=== PATIENT | male | born 1940 | race Caucasian/White ===

== ENCOUNTER → 2016-12-10 | Outpatient (CLI) | payer OTHER ==
[~2016-12-10] MED LIST: ADVAIR 250-501 EACH IH; ALBUTEROL INH IH; ASPIRIN325 PO; BENICAR20 MG PO; BUFFERIN EX ST500 MG PO; BYSTOLIC 5 MG5 M1 PO; BYSTOLIC10 MG PO; CENTRUM SILVER1 EAC5 PO; FISH OIL 1,2001 EAC2 PO; FISH OIL SOFTG1 EACH PO; FLOMAX0.4 MG PO; GLUCOPHAGE500 MG PO; HYDROCHLOROTHIA25 M1 PO; KEPPRA 500 MG500 M1 PO; KEPPRA750 MG PO; LANOXIN 0.120.125 M2 PO; LANOXIN 0.250.25 MG PO; LISINOPRIL10 MG PO; LORTAB 5 MG/5001 TA1 PO; LOVASTAT20 PO; METFORMIN HCL500 MG PO; MULTIVITAMINS PO; NITROSTAT0.4 M1 SUBLING; NITROSTAT0.4 MG; OXYCODONE HCL 55 MG PO; PERCOCET 7.5-31 EACH; PRADAXA150 MG PO; PREDNISONE 5 MG5 M1 PO; PROVENTIL HFA6.7 G1 INH; SPIRIVA; SPIRIVA IH; SPIRIVA INH; SYMBICORT160 MCG/4. INH; TOPROL XL50 MG PO
[2016-12-10 08:41] LABS: CREATININE 1.2 mg/dL (0.6-1.3)
== END ==
LOC: CAT 08:03 → LAB 13:33
PROVIDERS: Internal Medicine Cardiovascular Disease
DX: I71.4 Abdominal aortic aneurysm, without rupture (principal)

== ENCOUNTER → 2017-03-27 | Outpatient (CLI) | payer OTHER ==
[2017-03-27] VITALS (9 sets, daily range): BP systolic 126–165; BP diastolic 57–96
[~2017-03-27] VITALS: Ht 180.3 cm; Wt 120.2 kg
[~2017-03-27] MED LIST changes: +COUMADIN 1MG TAB1 M1 PO; +DYMISTA NASAL S23 GM NS; +ELIPTA INH; +FISH OIL 1,001000 M2 PO; +PRAVACHOL20 MG PO; +PROTONIX40 M1 PO; +SERTRALINE HCL50 MG PO; +UREA CREAM 40%1 TUBE TP
--- NOTE | ~2017-03-27 | S ---
[facility] [place] [address] SURGICAL PATH RPT PROCEDURE Name: FLORECITA CASSIDY Room #: REG [facility].#: [id number] Admission: 03/27/17 Date of : 44 Discharge: Report #: [id number] Path Case #: [id number] PATHOLOGY REPORT COLLECTION DATE: 03/27/2017 RECEIVED DATE: 03/27/2017 SUBMITTING PHYS: Dr. Smith Acevedo OTHER PHYS: Dr. Germán Hardin SPECIMEN(S) RECEIVED: A.Abdominal mass biopsy * * * * * * * * * * * * FINAL DIAGNOSIS: Soft tissue, abdominal mass, needle core biopsy: - Degenerated mature adipose tissue, clinically retroperitoneal mass. - Negative for nuclear atypia or pleomorphism. COMMENT: Examination shows mature adipose tissue without intact nuclei consistent with degenerative changes. Definite areas of necrosis are not identified. Inflammatory changes are not seen. Lipoblasts or nuclear atypia or pleomorphism in the few intact nuclei identified is not seen. There is no mitotic activity identified in any of the needle cores sampled. Please note sample represents a minute portion of a larger lesion and may not be entirely training representative. Correlate clinically and re-sample (excisional biopsy), if clinically indicated. (IUV:mml; 03/28/2017) PATHOLOGIST: Dorene Marroquin M.D. REPORT ELECTRONICALLY SIGNED BY: Dorene Marroquin M.D. DATE/TIME: 03/28/2017 16:41 * * * * * * * * * * * * GROSS PATHOLOGY: Received in formalin labeled "Florecita Cassidy, abdominal mass biopsy," are multiple (more than 10) distinct needle cores of red-mcnair, friable soft tissue ranging from 0.3 to 0.8 cm in length, which are submitted entirely in cassette A1. (KAH; 03/27/2017) CLINICAL HISTORY: [facility] [place] [address] SURGICAL PATH RPT PROCEDURE Name: FLORECITA CASSIDY Room #: REG [facility].#: [id number] Admission: 03/27/17 Date of : 44 Discharge: Report #: [id number] Path Case #: [id number] INITIAL CPT CODE(S): 42314 Professional services performed by [facility] at [address] , [place] [address] Technical services performed by [facility] at [address] [place] [address], [place] [address]. [facility] [address] [place] [address] PHONE: [phone] DIRECTOR: Sonny Mercado M.D. * * * END OF REPORT * * *
--- NOTE | ~2017-03-27 | CNG ---
[facility] [place] [address] CYTO-NONGYN REPORT PROCEDURE Name: FLORECITA CASSIDY Room #: REG [facility].#: [id number] Admission: 03/27/17 Date of : 44 Discharge: Report #: [id number] Path Case #: [id number] CYTOPATHOLOGY REPORT COLLECTION DATE: 03/27/2017 RECEIVED DATE: 03/27/2017 SUBMITTING PHYS: Dr. Smith Acevedo OTHER PHYS: Dr. Germán Hardin CLINICAL HISTORY: Abd mass. See also [id number]. SPECIMEN(S) RECEIVED: A.Abdominal fluid * * * * * * * * * * * * FINAL DIAGNOSIS: A. Abdominal fluid: - No malignant cells identified. - Few inflammatory cells present along with degenerated fat cells and debris. PATHOLOGIST: Dorene Marroquin M.D. REPORT ELECTRONICALLY SIGNED BY: Dorene Marroquin M.D. DATE/TIME: 03/28/2017 16:26 * * * * * * * * * * * * GROSS PATHOLOGY: A. Abdominal fluid: The specimen is submitted unfixed, labeled "Florecita Cassidy". Received by the Cytology Department is less than one mL of red fluid. One ThinPrep slide and a cell block were prepared. (clt 03.27.2017) PALLIATIVE NURSE(S): TIM East([facility] INITIAL CPT CODE(S): A; [id number] [place] [address] Professional services performed by [facility] at [facility] [address] [facility] [address] , [place] [address] [facility] at [address] [place] [address]., [address], [place] [address]. [facility] [address] [place] [address], [facility] [address] [place] [address] PHONE: [phone] [facility] [address] [place] [address] CYTO-NONGYN REPORT PROCEDURE Name: FLORECITA CASSIDY Room #: REG [facility] Cristian.#: [id number] Admission: 03/27/17 Date of : 44 Discharge: Report #: [id number] Path Case #: [id number] DIRECTOR: Sonny Mercado M.D. * * * END OF REPORT * * *
[2017-03-27 08:49] LABS: HEMATOCRIT 40.3 % (42.0-52.0); HEMOGLOBIN 13.8 gm/dL (14.0-18.0); MCH 29.6 pg (26.0-34.0); MCHC 34.3 g/dL (28.0-37.0); MCV 86.4 fL (80.0-100.0); RBC 4.67 mil/uL (4.50-6.00); RDW 15.9 % (10.5-14.5); WBC 9.4 thou/uL (4.0-11.0)
== END | disposition home or self-care (01) ==
LOC: CAT 07:41
PROVIDERS: Radiology Vascular & Interventional Radiology
DX: K66.8 Other specified disorders of peritoneum (principal); I48.91 Unspecified atrial fibrillation; J43.9 Emphysema, unspecified; I25.10 Atherosclerotic heart disease of native coronary artery without angina pectoris; E11.22 Type 2 diabetes mellitus with diabetic chronic kidney disease; N18.2 Chronic kidney disease, stage 2 (mild); I12.9 Hypertensive chronic kidney disease with stage 1 through stage 4 chronic kidney disease, or unspecified chronic kidney disease; I25.2 Old myocardial infarction; I73.89 Other specified peripheral vascular diseases; E78.00 Pure hypercholesterolemia, unspecified; Z79.4 Long term (current) use of insulin; Z87.891 Personal history of nicotine dependence; Z95.1 Presence of aortocoronary bypass graft; Z98.890 Other specified postprocedural states; Z95.5 Presence of coronary angioplasty implant and graft; Z88.8 Allergy status to other drugs, medicaments and biological substances; Z79.82 Long term (current) use of aspirin; Z79.899 Other long term (current) drug therapy

== ENCOUNTER → 2017-05-17 | Outpatient (CLI) | payer OTHER ==
[~2017-05-17] VITALS: Ht 180.3 cm; Wt 92.5 kg
[~2017-05-17] MED LIST changes: +INCRUSE ELLI62.5 MCG INH; +VENTOLIN HFA INH8 GM INH
--- NOTE | ~2017-05-17 | P ---
[facility] [place] [address] PROCEDURE REPORT Name: FLORECITA MAGDALENO Room #: REG [facility]#: [id number] Admission: 05/17/17 Attend Phys: Sj Badillo MD Discharge: Date of : 44 Report #: [id number] THIS REPORT FOR: //name// CC: Germán Rasmussen MD [facility] Sj Badillo BRIEF HISTORY: The patient is a 76-year-old male, known to me with a history of bleeding ulcer in the past. He does take an aspirin daily and he is anticoagulated with Coumadin. He also reports bouts of diarrhea. He does have diabetes. In addition, he has dysphagia for pills. PREOPERATIVE DIAGNOSES: Diarrhea, history of ulcers, and dysphagia. POSTOPERATIVE DIAGNOSES: 1. Moderate erosive gastritis with a few streaks of blood within the stomach lumen. 2. Mild grade A erosive esophagitis. 3. Dysphagia without obvious stricture ring. MEDICATIONS: Deep sedation with propofol per anesthesia. SPECIMENS: 1. Small-bowel biopsies. 2. Biopsy of gastritis. ESTIMATED BLOOD LOSS: 3 mL. PROCEDURE: EGD with biopsy and Duke dilation. FINDINGS: Prior to propofol sedation, procedure of upper endoscopy discussed with the patient as well potential risks, benefits, and complications. He indicates he understands and desires to proceed. With the patient in left lateral decubitus position, the Teach[employer] video endoscope was inserted in the cervical esophagus under direct vision without difficulty. Examination of this organ through its entire length revealed normal esophageal mucosa down the squamocolumnar junction. At the squamocolumnar junction, there were some very small erosions just limited to the squamocolumnar junction. There was no evidence of Meléndez's esophagus. A significant hiatus hernia was not seen. He has had dysphagia for pills, I did not see any strictures, rings, or masses within the esophagus. The GE junction other than the mild esophagitis was unremarkable. Scope was advanced into the stomach, was examined on end view as well as retroflexed views. He had a moderate gastritis and there were streaks of old blood scattered in the body and antrum of the stomach. No ulcers were seen. Significant bleeding was not seen. Upon retroflexion, no mass [address] [address] PROCEDURE REPORT Name: ELSYSCOTTRoxannFLORECITA Juliana Room #: REG [facility] Eliud#: [id number] Admission: 05/17/17 Attend Phys: Sj Badillo MD Discharge: Date of : 44 Report #: [id number] lesions were seen. In view of his history of ulcer disease and erosive changes, biopsies were obtained to evaluate for H. pylori. The pylorus, duodenal bulb and postbulbar sweep were inspected and noted to be within normal limits. He has had bouts of diarrhea, he does have diabetes and biopsies were obtained to evaluate for celiac disease. At that point, the scope was slowly withdrawn and careful circumferential views confirmed the above findings. The patient tolerated the procedure well. Following the procedure, he was dilated with passage of a 50-Romanian Duke dilator. There was no resistance. CONDITION OF THE PATIENT UPON DISCHARGE: Following procedure, the patient drowsy, aroused, conversant and will be discharged home when fully ambulatory. INSTRUCTIONS TO THE PATIENT AND FAMILY AT THE TIME OF DISCHARGE: The patient prepared for colonoscopy at this time. We will have him increase his pantoprazole to 40 mg twice daily for 12 weeks, then back to 1 daily. We will also obtain a CBC for followup and follow up on above mentioned biopsies. He should return for dysphagia on an as needed basis. He should use , although he does take an aspirin for his heart disease. <ELECTRONICALLY SIGNED> By: Sj Badillo MD 05/17/17 1715 0924 1008 Sj Badillo MD /nt
--- NOTE | ~2017-05-17 | S ---
[facility] [place] [address] SURGICAL PATH RPT PROCEDURE Name: FLORECITA CASSIDY Room #: REG [facility].#: [id number] Admission: 05/17/17 Date of : 44 Discharge: Report #: [id number] Path Case #: [id number] PATHOLOGY REPORT COLLECTION DATE: 05/17/2017 RECEIVED DATE: 05/17/2017 SUBMITTING PHYS: Dr. Sj Badillo OTHER PHYS: Dr. Germán Hardin SPECIMEN(S) RECEIVED: A.Bx of small bowel B.Bx of gastric C.Polyp at cecum D.Polyp at ascending colon E.Random colon bx * * * * * * * * * * * * FINAL DIAGNOSIS: A. Small bowel, rule out celiac, endoscopic biopsy: - Negative for villous blunting or increase in intraepithelial lymphocytosis. - No significant diagnostic abnormalities identified. B. Gastric mucosa, gastritis history of ulcer, endoscopic biopsy: - Mild reactive gastropathy with focal ulcer bed and active inflammation, consistent with history of ulcer. - Negative for intestinal metaplasia or atrophy. - Negative for Helicobacter pylori. C. Polyp, at cecum, endoscopic biopsy: - Tubular adenoma. - Negative for high grade dysplasia. D. Polyp, at ascending colon, endoscopic biopsy: - Tubular adenoma. - Negative for high grade dysplasia. E. Large intestine, random colon, rule out colitis, endoscopic biopsy: - Minimal histologic alterations, see comment. - Negative for dysplasia or malignancy. COMMENT: Helicobacter pylori immunohistochemical stain performed on block B1 - negative. E: Examination shows an increased cellularity within the lamina propria along with rare apoptotic bodies within the surface epithelium. There is no evidence of active colitis, crypt architectural abnormalities, lamina propria fibrosis, viral inclusions, parasitic organisms or granulomata present. Findings to suggest microscopic colitis are not identified as well. The changes may represent bowel preparation. Clinical correlation is suggested. [address] [address] SURGICAL PATH RPT PROCEDURE Name: FLORECITA CASSIDY Room #: REG [facility] Kline#: [id number] Admission: 05/17/17 Date of : 44 Discharge: Report #: [id number] Path Case #: [id number] (IUV:db; 05/20/2017) PATHOLOGIST: Dorene Marroquin M.D. REPORT ELECTRONICALLY SIGNED BY: Dorene Marroquin M.D. DATE/TIME: 05/20/2017 17:16 * * * * * * * * * * * * GROSS PATHOLOGY: A. Received in formalin labeled "Florecita Cassidy small bowel BX r/o celiac," and additionally labeled on the requisition as "Hx of diarrhea Dm," are 5 segments of mcnair soft tissue measuring 0.9 x 0.5 x 0.3 cm in aggregate dimensions and ranging from 0.3 to 0.4 cm in maximum dimension. The specimen is submitted entirely in cassette A1. B. Received in formalin labeled "Florecita Cassidy BX of gastritis Hx of ulcer," are 3 segments of mcnair soft tissue measuring 0.8 x 0.2 x 0.2 cm in aggregate dimensions and ranging from 0.2 to 0.4 cm in maximum dimension. The specimen is submitted entirely in cassette B1. C. Received in formalin labeled "Florecita Cassidy, polyp at cecum," is a segment of mcnair soft tissue measuring 0.5 cm in maximum dimension. The specimen is submitted entirely in cassette C1. D. Received in formalin labeled "Florecita Cassidy, polyp at ascending colon," is a segment of mcnair soft tissue measuring 0.6 cm in maximum dimension. The specimen is submitted entirely in cassette D1. E. Received in formalin labeled "Florecita Cassidy, random colon BX r/o colitis," are 8 segments of mcnair soft tissue measuring 1.7 x 0.9 x 0.3 cm in aggregate dimensions and ranging from 0.3 to 0.8 cm in maximum dimension. The specimen is submitted entirely in cassette E1. (TSD; 05/17/2017) CLINICAL HISTORY: Pre-OP DX: Hx diarrhea, constipation, dysphagia Post-OP DX: Gastritis, esophagitis INITIAL CPT CODE(S): A; 78904 B; 51883, 14218 C; 12419 D; 01060 E; 44125 Professional services performed by [facility] at [address], [place] [address] Technical services performed by [facility] at [address] [place] [address], [address], [place] [address]. [facility] [address] [place] [address] SURGICAL PATH RPT PROCEDURE Name: FLORECITA CASSIDY Room #: REG [facility] Kline#: [id number] Admission: 05/17/17 Date of : 44 Discharge: Report #: [id number] Path Case #: [id number] [facility] [address] [address] PHONE: [phone] DIRECTOR: Sonny Mercado M.D. * * * END OF REPORT * * *
--- NOTE | ~2017-05-17 | P ---
[facility] [place] [address] PROCEDURE REPORT Name: FLORECITA MAGDALENO Room #: REG [facility]#: [id number] Admission: 05/17/17 Attend Phys: Sj Badillo MD Discharge: Date of : 44 Report #: [id number] THIS REPORT FOR: //name// CC: Germán Rasmussen MD [facility] Sj Badillo BRIEF HISTORY: The patient is a 76-year-old male with a history of colon adenoma. He also has had a history of major GI bleeding related to rectal ulcer several years ago, which were likely ischemic. He does have diabetes and is now reporting intermittent episode of diarrhea. PREOPERATIVE DIAGNOSES: History of colon polyps and diarrhea. POSTOPERATIVE DIAGNOSES: 1. Cecal polyp. 2. Proximal ascending colon polyp. 3. Random biopsies of the colon, rule out colitis. ESTIMATED BLOOD LOSS: 3 mL. PROCEDURE: Colonoscopy to cecum and terminal ileum with snare polypectomy and biopsy. FINDINGS: Prior to propofol sedation, procedure of colonoscopy discussed with the patient as well as potential risks, benefits, and complications. He indicates he understands and desires to proceed. With the patient in left lateral decubitus position, digital examination was completed, which revealed no abnormalities. Subsequently, the qianchengwuyou video colonoscope was introduced into the rectum, advanced under direct vision to the cecum. Done with minimal difficulty. The cecum was identified by the ileocecal valve and the appendiceal orifice. I was able to visualize the distal segment of the terminal ileum, which was inspected and noted to be unremarkable. At that point, the scope was slowly withdrawn and careful circumferential views were obtained. Upon slow withdrawal of the scope, including retroflexing, the prep was good. The mucosa was within normal limits, normal vascular pattern, and normal light reflex. As the scope was withdrawn, a 4 x 6 sessile polyp was seen in the cecum. It was removed by cold snare polypectomy and recovered. Scope was further withdrawn and a 4 x 5 sessile polyp was seen in the proximal ascending colon and also removed by cold snare polypectomy. The patient has had bouts of diarrhea. Multiple biopsies were obtained to evaluate for microscopic colitis. In addition, as we withdrew the scope, a few scattered diverticula were seen in the proximal colon and moderate diverticular disease was seen in the sigmoid colon as well. In addition, as we withdrew the scope through the sigmoid and rectum, a few scattered venous lakes were seen as well. In [address] [address] PROCEDURE REPORT Name: FLORECITA MAGDALENO Room #: REG [facility] Kline#: [id number] Admission: 05/17/17 Attend Phys: Sj Badillo MD Discharge: Date of : 44 Report #: [id number] addition, in the rectum, there were scattered scars likely related to his previous ulcer disease involving the rectum. Upon retroflexion, no additional abnormalities were seen. Scope was withdrawn. The patient tolerated the procedure well. CONDITION OF THE PATIENT UPON DISCHARGE: Following the procedure, the patient drowsy and arousable and we discharged home when fully ambulatory. INSTRUCTIONS TO THE PATIENT AND FAMILY AT THE TIME OF DISCHARGE: He has had polyps in the past. Two polyps were identified and removed today. We will follow up on the path report. If these polyps are adenomatous, he should return in 5 years. If not, consider 10 years, although I would base that recommendations on the patient's overall health status in 10 years and at age 86. We will follow up on biopsies with regards to his bouts of diarrhea and the possibly of microscopic colitis. It is also noted that he has had a previous cholecystectomy and bile binding agent may be a consideration. In view of his diabetes, consider the possibility of small intestinal bacterial overgrowth. In addition, taking a probiotic at this time would be reasonable. He may resume his Coumadin today. He will follow up with Dr. Germán Hardin and Dr. Rasmussen. He should return to see me as needed with regards to GI symptoms. Last colonoscopy was more than 3 years ago. Withdrawal time from the cecum was 14 minutes. <ELECTRONICALLY SIGNED> By: Sj Badillo MD 05/17/17 1715 0952 1157 Sj Badillo MD /mónica
[2017-05-17 08:42] LABS: INR 1.2; PROTIME 12.7 Seconds (9.3-11.4)
== END | disposition home or self-care (01) ==
LOC: LABMALL 05-14 13:13 → GI 05-14 13:23
PROVIDERS: Ophthalmology
DX: D12.0 Benign neoplasm of cecum (principal); R19.7 Diarrhea, unspecified; Z87.19 Personal history of other diseases of the digestive system; E11.9 Type 2 diabetes mellitus without complications; D12.2 Benign neoplasm of ascending colon; K57.30 Diverticulosis of large intestine without perforation or abscess without bleeding; K22.10 Ulcer of esophagus without bleeding; F41.9 Anxiety disorder, unspecified; J44.9 Chronic obstructive pulmonary disease, unspecified; J43.9 Emphysema, unspecified; Z87.891 Personal history of nicotine dependence; I21.3 ST elevation (STEMI) myocardial infarction of unspecified site; I10 Essential (primary) hypertension; Z95.1 Presence of aortocoronary bypass graft; I48.91 Unspecified atrial fibrillation; I25.10 Atherosclerotic heart disease of native coronary artery without angina pectoris
CPT/HCPCS: 62110; 62900

== ENCOUNTER → 2017-06-06 | Outpatient (CLI) | payer OTHER ==
[2017-06-06 10:34] LABS: CREATININE 1.3 mg/dL (0.7-1.3)
== END ==
LOC: CAT 05-30 08:50
PROVIDERS: Internal Medicine
DX: I12.9 Hypertensive chronic kidney disease with stage 1 through stage 4 chronic kidney disease, or unspecified chronic kidney disease (principal); E11.22 Type 2 diabetes mellitus with diabetic chronic kidney disease; N18.3 Chronic kidney disease, stage 3 (moderate); R19.00 Intra-abdominal and pelvic swelling, mass and lump, unspecified site

== ENCOUNTER → 2017-12-23 | Outpatient (CLI) | payer OTHER | LOC: CAT 06:06 | DX: I72.3 Aneurysm of iliac artery (principal); I10 Essential (primary) hypertension; K76.0 Fatty (change of) liver, not elsewhere classified; K57.30 Diverticulosis of large intestine without perforation or abscess without bleeding ==

== ENCOUNTER 2019-04-20 08:50 | Inpatient (IN) | payer OTHER ==
[~2019-04-20] VITALS: Ht 180.3 cm; Wt 97.5 kg
[2019-04-20 08:52] VITALS: BP 127/72
[2019-04-20] MEDS ORDERED: DYMISTA NASAL S23 GM NASAL (09:13)
[2019-04-20] MEDS ORDERED: LANTUS100 UNIT/M SUBQ (09:14)
[2019-04-20] MEDS ORDERED: ELIQUIS5 MG PO (09:14)
[2019-04-20] MEDS ORDERED: LISINOPRIL10 MG PO (09:16)
[2019-04-20 09:17] LABS: ABSOLUTE NEUTROPHILS 6.1 thou/uL (1.4-8.2); BASOPHILS 0.5 % (0.0-2.0); EOSINOPHILS 3.7 % (0.0-3.0); HEMATOCRIT 34.1 % (42.0-52.0); HEMOGLOBIN 11.2 gm/dL (14.0-18.0); LYMPHOCYTES 8.6 % (24.0-44.0); MCH 29.4 pg (26.0-34.0); MCV 89.2 fL (80.0-100.0); MONOCYTES 7.4 % (1.0-8.0); PLATELET COUNT 194 thou/uL (150-400); POLYS 79.8 % (36.0-66.0); RBC 3.82 mil/uL (4.50-6.00); RDW 17.2 % (10.5-14.5); WBC 7.7 thou/uL (4.0-11.0)
[2019-04-20] MEDS ORDERED: PAXIL10 MG PO (09:18)
[2019-04-20] MEDS ORDERED: NOVOLOG100 UNIT/1 SUBQ (09:18)
[2019-04-20] MEDS ORDERED: SPIRIVA INH ×2 (09:19→09:20)
[2019-04-20 09:26] LABS: ANION GAP 8 mmol/L (7-16); BUN 43 mg/dL (7-18); CALCIUM 9.5 mg/dL (8.5-10.1); CHLORIDE 101 mmol/L (98-107); CO2 27 mmol/L (21-32); CREATININE 1.6 mg/dL (0.7-1.3); GLUCOSE 217 mg/dL (74-106); POTASSIUM 5.3 mmol/L (3.5-5.1); SODIUM 136 mmol/L (136-145)
[2019-04-20 09:37] LABS: ALBUMIN 3.3 g/dL (3.4-5.0); SGOT 16 U/L (15-37); SGPT 17 U/L (30-65); TOTAL BILIRUBIN 0.5 mg/dL (<0.1-1.0); TOTAL PROTEIN 7.4 g/dL (6.4-8.2); TROPONIN-I <0.06 ng/mL (<0.06)
[2019-04-20 09:40] LABS: URINE BILIRUBIN NEGATIVE (Negative); URINE BLOOD NEGATIVE (Negative); URINE CLARITY CLEAR; URINE COLOR YELLOW; URINE GLUCOSE-RANDOM* NEGATIVE (Negative); URINE KETONES NEGATIVE (Negative); URINE LEUKOCYTES NEGATIVE (Negative); URINE NITRITE NEGATIVE (Negative); URINE PROTEIN (DIPSTICK) NEGATIVE (Negative); URINE UROBILINOGEN 0.2 E.U./dl (0.2-1.0)
[2019-04-20 12:10] VITALS: BP 143/86
[2019-04-21 06:16] LABS: CALCIUM 8.7 mg/dL (8.5-10.1); CREATININE 1.5 mg/dL (0.7-1.3); POTASSIUM 4.7 mmol/L (3.5-5.1)
--- NOTE | 2019-04-21 08:12 | EKG ---
[address] [address] ELECTROCARDIOGRAM REPORT Name: FLORECITA MAGDALENO Room #: 523A-A ADM IN M.R.#: [id number] Admission: 04/20/19 Attend Phys: Mario Alberto Montoya DO Discharge: Date of : 44 Report #: [id number] THIS REPORT FOR: //name// [facility] ED Test Date: 2019-04-20 Test Time: 09:02:03 Pat Name: FLORECITA MAGDALENO Department: Room: 52 Gender: M [employer] Aircraft Technician: roman perez : 1940 Requested By: Priyanka Miner Order Number: [id number] MD: Saad Melendrez Measurements Intervals Morgan Rate: 85 P: MO: QRS: 83 QRSD: 135 T: -69 QT: 380 QTc: 452 Interpretive Statements Atrial fibrillation Right bundle branch block Nonspecific ST and T wave abnormality Compared to ECG 03/12/2014 13:00:47 Right bundle-branch block now present Electronically Signed On 04-21-2019 8:12:43 CDT by Saad Melendrez [email or web address] <ELECTRONICALLY SIGNED> By: Saad Melendrez MD, [facility] 04/21/19811 09 0902 Saad Melendrez MD, [facility] /EPI
--- NOTE | 2019-04-21 10:35 | 2DMMODE ---
[facility] [address] [facility] [place] [address] 2 D/M-MODE ECHOCARDIOGRAM Name: FLORECITA MAGDALENO TOMMY Room #: 523A-A ADM IN M.R.#: [id number] Admission: 04/20/19 Attend Phys: Mario Alberto Montoya Discharge: Date of : 44 Date of Service: 04/21/19 1035 Report #: [id number] THIS REPORT FOR: //name// APPROVED REPORT Study performed: 04/21/2019 09:44:30 EXAM: Comprehensive 2D, Doppler, and color-flow Echocardiogram Patient Location: Echo lab Room #: 523 Status: routine BSA: 2.28 HR: 83 bpm BP: 143/86 mmHg Rhythm: Atrial Fibrillation Other Information Study Quality: Adequate Indications Leg edema, CHF. Hx: Afib, CABG, COPD, HTN, PVD. 2D Dimensions RVDd: 40.90 mm IVSd: 12.00 (7-11mm) LVOT Diam: 23.39 (18-24mm) LVDd: 53.98 mm PWd: 9.00 (7-11mm) LVDs: 39.45 (25-40mm) Aortic Root: 39.03 mm Volumes Left Atrial Volume (Systole) Single Plane 4CH: 93.65 mL Single Plane 2CH: 72.42 mL LA ESV Index: 39.00 mL/m2 Aortic Valve AoV Peak Garland.: 1.32 m/s AO Peak Gr.: 7.18 mmHg LVOT Max P.93 mmHg LVOT Max V: 1.10 m/s ADOLFO Vmax: 3.58 cm2 Mitral Valve MV Decel. Time: 217.71 ms MV E Max Garland.: 1.56 m/s [facility] [place] [place] [address] 2 D/M-MODE ECHOCARDIOGRAM Name: FLORECITA MAGDALENO ST[place]AM Room #: 523A-A ADM IN M.R.#: [id number] Admission: 04/20/19 Attend Phys: Mario Alberto Montoya Discharge: Date of : 44 Date of Service: 04/21/19 1035 Report #: [id number] Pulmonary Valve PV Peak Garland.: 1.13 m/s PV Peak Gr.: 5.09 mmHg Tricuspid Valve TR Peak Garland.: 3.10 m/s RAP Estimate: 10.00 mmHg TR Peak Gr.: 38.65 mmHg PA Pressure: 49.00 mmHg Left Ventricle The left ventricle is normal size. There is normal LV segmental wall motion. There is normal left ventricular wall thickness. The left ventricular systolic function is normal. The left ventricular ejection fraction is within the normal range. LVEF is 50%. This study is not technically sufficient to allow evaluation of the LV diastolic function due to atrial fibrillation. Right Ventricle The right ventricle is normal size. The right ventricular systolic function is normal. Atria Left atrium is moderately dilated. Right atrium is moderately dilated. Aortic Valve Aortic valve is trileaflet, mildly sclerotic. Mild aortic regurgitation. There is no aortic valvular stenosis. Mitral Valve Moderate mitral annular calcification. Moderate mitral regurgitation. Tricuspid Valve The tricuspid valve is normal in structure. Moderate tricuspid regurgitation. Estimated PAP is 50mmHg. Pulmonic Valve The pulmonary valve is normal in structure. Trace pulmonic regurgitation. Great Vessels Aortic root is mildly dilated at 3.9cm. Ascending aorta is not well visualized. IVC is dilated and collapses <50% with inspiration. Pericardium [facility] [address] [place] [address] 2 D/M-MODE ECHOCARDIOGRAM Name: FLORECITA MAGDALENO Room #: 523A-A ADM IN M.R.#: [id number] Admission: 04/20/19 Attend Phys: Mario Alberto Montoya Discharge: Date of : 44 Date of Service: 04/21/19 1035 Report #: [id number] There is no pericardial effusion. <Conclusion> The left ventricular systolic function is normal. LVEF is 50%. Both atria are moderately dilated. Aortic valve is trileaflet, mildly sclerotic. Mild aortic regurgitation, no stenosis. Moderate mitral annular calcification. Moderate mitral regurgitation. Moderate tricuspid regurgitation. Estimated pulmonary artery pressure of 50mmHg. There is no pericardial effusion. <ELECTRONICALLY SIGNED> By: Saad Melendrez MD, FACC 08/13/19 1035 1035 1035 Saad Melendrez MD, [facility] /INF
[2019-04-21 11:00] VITALS: BP 141/70
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
[2019-04-21 17:45] VITALS: BP 104/54
[2019-04-21 18:06] VITALS: BP 133/78
[2019-04-21 19:50] VITALS: BP 107/69
[2019-04-22 06:14] LABS: CREATININE 1.6 mg/dL (0.7-1.3); POTASSIUM 4.2 mmol/L (3.5-5.1)
[2019-04-22 09:16] VITALS: BP 121/88
[2019-04-22 14:08] VITALS: BP 121/88
[2019-04-22 20:54] VITALS: BP 110/65
[2019-04-23 01:53] VITALS: BP 110/65
[2019-04-23 07:09] LABS: ABSOLUTE NEUTROPHILS 4.9 thou/uL (1.4-8.2); BASOPHILS 0.6 % (0.0-2.0); EOSINOPHILS 3.7 % (0.0-3.0); LYMPHOCYTES 12.8 % (24.0-44.0); MONOCYTES 9.7 % (1.0-8.0); POLYS 73.2 % (36.0-66.0); WBC 6.6 thou/uL (4.0-11.0)
[2019-04-23 07:22] LABS: CALCIUM 8.7 mg/dL (8.5-10.1); CREATININE 1.9 mg/dL (0.7-1.3)
[2019-04-23 07:40] VITALS: BP 101/68
[2019-04-23 08:00] VITALS: BP 101/68
[2019-04-23 21:35] VITALS: BP 112/48; BP 139/99
[2019-04-24 06:44] LABS: CREATININE 1.9 mg/dL (0.7-1.3); POTASSIUM 3.9 mmol/L (3.5-5.1)
[2019-04-24 07:30] VITALS: BP 113/70
[2019-04-24] MEDS ORDERED: DEMADEX20 MG PO (09:03)
[2019-04-24 09:06] VITALS: BP 113/70
[2019-04-24] MEDS ORDERED: METOPROLOL SUCC50 MG PO (09:16)
[2019-04-24] MEDS ORDERED: DOXYCYCLINE HYC50 MG PO (09:16)
[2019-04-24 10:15] VITALS: BP 113/70
[2019-04-24 10:57] VITALS: BP 113/70
[2019-04-24] MEDS ORDERED: SEROQUEL 25 MG25 M1 PO (10:57)
[2019-04-24] MEDS ORDERED: SEROQUEL 25 MG25 MG PO (10:58)
[2019-04-24] MEDS ORDERED: LANTUS100 UNIT/M SUBQ (10:58)
[2019-04-24] MEDS ORDERED: NOVOLOG100 UNIT/1 SUBQ (10:59)
--- NOTE | 2019-04-27 08:00 | D ---
[facility] [place] [address] DISCHARGE SUMMARY Name: FLORECITA MAGDALENO Room #: 523A-A DIS IN M.R.#: [id number] Admission: 04/20/19 Attend Phys: Mario Alberto Montoya DO Discharge: 04/24/19 Date of : 44 Report #: [id number] THIS REPORT FOR: //name// CC: Mario Alberto Hardin DATE OF SERVICE: 04/24/2019 PSYCHIATRIC DISCHARGE SUMMARY ATTENDING: Mario Alberto Montoya DO MEDICAL AND [employer]ER [employer]ANE OPERATOR: Stanford Rasmussen MD DISCHARGE DIAGNOSES: Unspecified depression, improved; panic disorder; agoraphobia; tendency towards somatization. DISCHARGE PLAN: Discharged home with his . The patient will be in [facility] at [facility] next Saturday. Also, we will do physical therapy at [facility]. Cardiology f/u with Dr. Rasmussen Primary care follow up with Dr. Germán Hardin Diet for this patient is a diabetic 1800-calorie diet. DISCHARGE MEDICATIONS: Are as follows: Furosemide 20 mg p.o. daily; doxycycline 100 mg p.o. b.i.d.; metoprolol succinate 50 mg daily; Seroquel 37.5 mg 3 times a day at 9 am, 3 pmaand 9 pm and 25 mg q. 6 hours p.r.n.; insulin glargine 25 units subcutaneous at bedtime; insulin aspart 6 units subcutaneous a.c. Continue medications; nitroglycerin p.r.n., tamsulosin 0.4 mg p.o. daily at bedtime, Keppra 500 mg b.i.d. for seizure disorder, digoxin 125 mcg p.o. daily for rate control, albuterol 2 puffs inhaled q. 4 hours p.r.n. shortness of breath, apixaban 5 mg p.o. b.i.d., lisinopril 10 mg p.o. daily for hypertension. Sertraline was discontinued this admission. LABORATORY DATA: There were numbers of laboratories done this admission. Hematology showed H and H 11.2 and 34.1, white count 7.7. ESR was 56. Electrolytes showed sodium 137, potassium 3.9, chloride 102, bicarbonate 26, BUN 61, creatinine 1.9. Dr. Rasmussen was okay with a creatinine. Urinalysis was negative. Also, there was a 2D echocardiogram done, showed left ventricular ejection fraction at 50% which was desirable. The patient did not have any coronary events or concerns other than intermittent shortness of breath that was due to his anxiety disorder. [address] [address] DISCHARGE SUMMARY Name: FLORECITA MAGDALENO Room #: 523A-A [facility] IN M.R.#: [id number] Admission: 04/20/19 Attend Phys: Mario Alberto Montoya, Discharge: 04/24/19 Date of : 44 Report #: [id number] REASON FOR ADMISSION: The patient had become according to day worker "cardiac cripple," living in this house since September, some feelings of depression, but becoming panic stricken when he would contemplate activities outside of the house. HOSPITAL COURSE: The patient was admitted to Geriatric Psychiatry Unit. Alprazolam was discontinued given the patient's age, bears less anxiety, rebound. He was started on Seroquel 25 mg t.i.d., this was titrated to 37.5 mg t.i.d. Several family meetings were held with his and his granddaughter present. His granddaughter is a registered nurse. We discussed that this would be a marathon not a sprint that from a psychotherapeutic standpoint, the patient's attendance in PHP program, which would be groups ____ during the day that would be higher functioning group, is essential. The patient also had not been able to give physical therapy a good effort. So he was seen on the unit and for gait training, endurance, strengthening that was recommended. On the day of discharge, the patient was not suicidal or homicidal, was open to above recommendations. Musculoskeletal exam; assisted gait with a walker. MENTAL STATUS EXAMINATION: This is a well-developed, well-nourished male, appearing stated age. Attention intact. Concentration intact. Speech is normal in rate, volume and tone. Thought process linear and goal oriented. Thought content focused on discharge, improved himself. No psychomotor retardation or psychomotor agitation. Denied SI or HI. Denied hopelessness and helplessness. Denied homicidal intent or plan. Denied suicidal intent or plan. Memory not formally tested. Insight fair. Judgment fair. Fund of knowledge at least average. Prognosis for this patient is fair to guarded depending on the effort and compliance he puts forth. <ELECTRONICALLY SIGNED> By: Mario Alberto Montoya, 04/27/19 0800 1208 1339 Mario Alberto Montoya DO /nt
== END 2019-04-24 11:30 | disposition home or self-care (01) | DRG 882 ==
LOC: ER 08:50 → SBH 10:20 → EROBS 10:20 → SBH 12:13
PROVIDERS: Emergency Medicine; Internal Medicine Cardiovascular Disease; Nurse Practitioner Adult Health; ADMIT Psychiatry & Neurology Psychiatry
DX: F40.01 Agoraphobia with panic disorder (principal); L03.119 Cellulitis of unspecified part of limb; F32.9 Major depressive disorder, single episode, unspecified; F41.8 Other specified anxiety disorders; G89.29 Other chronic pain; M54.9 Dorsalgia, unspecified; I25.10 Atherosclerotic heart disease of native coronary artery without angina pectoris; I73.9 Peripheral vascular disease, unspecified; J43.9 Emphysema, unspecified; I10 Essential (primary) hypertension; F41.9 Anxiety disorder, unspecified; N40.0 Benign prostatic hyperplasia without lower urinary tract symptoms; E11.319 Type 2 diabetes mellitus with unspecified diabetic retinopathy without macular edema; I71.4 Abdominal aortic aneurysm, without rupture; I48.2 Chronic atrial fibrillation; E78.5 Hyperlipidemia, unspecified; F40.00 Agoraphobia, unspecified; I25.2 Old myocardial infarction; Z95.5 Presence of coronary angioplasty implant and graft; Z95.828 Presence of other vascular implants and grafts; Z86.718 Personal history of other venous thrombosis and embolism; Z95.1 Presence of aortocoronary bypass graft; Z98.42 Cataract extraction status, left eye; Z98.41 Cataract extraction status, right eye; Z88.8 Allergy status to other drugs, medicaments and biological substances; Z79.4 Long term (current) use of insulin; Z82.49 Family history of ischemic heart disease and other diseases of the circulatory system
CPT/HCPCS: 10880

== ENCOUNTER → 2019-05-12 | Outpatient (CLI) | payer OTHER ==
[~2019-05-12] MED LIST changes: +DEMADEX20 MG PO; +DOXYCYCLINE HYC50 MG PO; +DYMISTA NASAL S23 GM NASAL; +ELIQUIS5 MG PO; +LANTUS100 UNIT/M SUBQ; +METOPROLOL SUCC50 MG PO; +NOVOLOG100 UNIT/1 SUBQ; +PAXIL10 MG PO; +SEROQUEL 25 MG25 M1 PO; +SEROQUEL 25 MG25 MG PO
== END ==
LOC: HYPER 05-05 14:43
DX: E11.622 Type 2 diabetes mellitus with other skin ulcer (principal); L97.822 Non-pressure chronic ulcer of other part of left lower leg with fat layer exposed; L03.116 Cellulitis of left lower limb; L03.115 Cellulitis of right lower limb; E11.51 Type 2 diabetes mellitus with diabetic peripheral angiopathy without gangrene; I25.10 Atherosclerotic heart disease of native coronary artery without angina pectoris; I48.2 Chronic atrial fibrillation; I10 Essential (primary) hypertension; I71.4 Abdominal aortic aneurysm, without rupture; L30.9 Dermatitis, unspecified; G89.4 Chronic pain syndrome; E78.00 Pure hypercholesterolemia, unspecified; G47.30 Sleep apnea, unspecified; R60.0 Localized edema; J44.9 Chronic obstructive pulmonary disease, unspecified; F41.0 Panic disorder [episodic paroxysmal anxiety]; F33.8 Other recurrent depressive disorders; Z87.891 Personal history of nicotine dependence; Z79.4 Long term (current) use of insulin; Z95.1 Presence of aortocoronary bypass graft; Z95.828 Presence of other vascular implants and grafts; Z79.01 Long term (current) use of anticoagulants

== ENCOUNTER → 2019-05-21 | Outpatient (CLI) | payer OTHER | LOC: HYPER 06:46 | DX: E11.622 Type 2 diabetes mellitus with other skin ulcer (principal); L97.821 Non-pressure chronic ulcer of other part of left lower leg limited to breakdown of skin; L03.116 Cellulitis of left lower limb; L03.115 Cellulitis of right lower limb; E11.51 Type 2 diabetes mellitus with diabetic peripheral angiopathy without gangrene; I25.10 Atherosclerotic heart disease of native coronary artery without angina pectoris; I48.2 Chronic atrial fibrillation; I10 Essential (primary) hypertension; I71.4 Abdominal aortic aneurysm, without rupture; L30.9 Dermatitis, unspecified; G89.4 Chronic pain syndrome; I89.0 Lymphedema, not elsewhere classified; G47.30 Sleep apnea, unspecified; E78.00 Pure hypercholesterolemia, unspecified; G47.50 Parasomnia, unspecified; R60.0 Localized edema; F41.0 Panic disorder [episodic paroxysmal anxiety]; F33.8 Other recurrent depressive disorders; Z95.818 Presence of other cardiac implants and grafts; Z87.891 Personal history of nicotine dependence; Z79.4 Long term (current) use of insulin; Z95.1 Presence of aortocoronary bypass graft; Z95.828 Presence of other vascular implants and grafts; Z79.01 Long term (current) use of anticoagulants ==

== ENCOUNTER → 2019-06-09 | Outpatient (CLI) | payer OTHER | LOC: HYPER 08:06 | DX: E11.622 Type 2 diabetes mellitus with other skin ulcer (principal); L97.821 Non-pressure chronic ulcer of other part of left lower leg limited to breakdown of skin; L97.811 Non-pressure chronic ulcer of other part of right lower leg limited to breakdown of skin; S90.41 Abrasion of toe; I25.10 Atherosclerotic heart disease of native coronary artery without angina pectoris; I71.4 Abdominal aortic aneurysm, without rupture; I10 Essential (primary) hypertension; L30.9 Dermatitis, unspecified; I89.0 Lymphedema, not elsewhere classified; I48.91 Unspecified atrial fibrillation; E11.51 Type 2 diabetes mellitus with diabetic peripheral angiopathy without gangrene; E78.00 Pure hypercholesterolemia, unspecified; R60.0 Localized edema; G89.4 Chronic pain syndrome; G47.30 Sleep apnea, unspecified; G47.50 Parasomnia, unspecified; J44.9 Chronic obstructive pulmonary disease, unspecified; F33.8 Other recurrent depressive disorders; F41.0 Panic disorder [episodic paroxysmal anxiety]; Z95.818 Presence of other cardiac implants and grafts; Z79.4 Long term (current) use of insulin; Z95.1 Presence of aortocoronary bypass graft; Z95.828 Presence of other vascular implants and grafts; Z79.01 Long term (current) use of anticoagulants; Z87.891 Personal history of nicotine dependence; X58.XXXS Exposure to other specified factors, sequela ==

== ENCOUNTER → 2019-07-06 | Outpatient (CLI) | payer OTHER | LOC: HYPER 06-25 17:10 | DX: E11.622 Type 2 diabetes mellitus with other skin ulcer (principal); L97.821 Non-pressure chronic ulcer of other part of left lower leg limited to breakdown of skin; L97.811 Non-pressure chronic ulcer of other part of right lower leg limited to breakdown of skin; E11.51 Type 2 diabetes mellitus with diabetic peripheral angiopathy without gangrene; I25.10 Atherosclerotic heart disease of native coronary artery without angina pectoris; I10 Essential (primary) hypertension; I48.91 Unspecified atrial fibrillation; I71.4 Abdominal aortic aneurysm, without rupture; L30.9 Dermatitis, unspecified; G89.4 Chronic pain syndrome; I89.0 Lymphedema, not elsewhere classified; E78.00 Pure hypercholesterolemia, unspecified; G47.30 Sleep apnea, unspecified; G47.50 Parasomnia, unspecified; R60.0 Localized edema; J44.9 Chronic obstructive pulmonary disease, unspecified; F41.0 Panic disorder [episodic paroxysmal anxiety]; F33.8 Other recurrent depressive disorders; F41.9 Anxiety disorder, unspecified; Z87.891 Personal history of nicotine dependence; Z79.4 Long term (current) use of insulin; Z95.1 Presence of aortocoronary bypass graft; Z95.828 Presence of other vascular implants and grafts; Z79.01 Long term (current) use of anticoagulants ==

== ENCOUNTER → 2019-07-28 | Outpatient (CLI) | payer OTHER | LOC: HYPER 07:31 | DX: E11.622 Type 2 diabetes mellitus with other skin ulcer (principal); L97.811 Non-pressure chronic ulcer of other part of right lower leg limited to breakdown of skin; L97.821 Non-pressure chronic ulcer of other part of left lower leg limited to breakdown of skin; E11.51 Type 2 diabetes mellitus with diabetic peripheral angiopathy without gangrene; I25.10 Atherosclerotic heart disease of native coronary artery without angina pectoris; I48.20 Chronic atrial fibrillation, unspecified; I10 Essential (primary) hypertension; I71.4 Abdominal aortic aneurysm, without rupture; E78.00 Pure hypercholesterolemia, unspecified; L30.9 Dermatitis, unspecified; G89.4 Chronic pain syndrome; G47.50 Parasomnia, unspecified; R60.0 Localized edema; G47.30 Sleep apnea, unspecified; J44.9 Chronic obstructive pulmonary disease, unspecified; F41.0 Panic disorder [episodic paroxysmal anxiety]; F33.8 Other recurrent depressive disorders; Z95.818 Presence of other cardiac implants and grafts; Z79.4 Long term (current) use of insulin; Z95.1 Presence of aortocoronary bypass graft; Z95.828 Presence of other vascular implants and grafts; Z79.01 Long term (current) use of anticoagulants; Z87.891 Personal history of nicotine dependence ==

== ENCOUNTER → 2019-10-14 | Outpatient (CLI) | payer OTHER | LOC: HYPER 12:06 | DX: E11.622 Type 2 diabetes mellitus with other skin ulcer (principal); L97.818 Non-pressure chronic ulcer of other part of right lower leg with other specified severity; L97.821 Non-pressure chronic ulcer of other part of left lower leg limited to breakdown of skin; L03.116 Cellulitis of left lower limb; L03.115 Cellulitis of right lower limb; L30.9 Dermatitis, unspecified; E11.51 Type 2 diabetes mellitus with diabetic peripheral angiopathy without gangrene; E78.00 Pure hypercholesterolemia, unspecified; I25.10 Atherosclerotic heart disease of native coronary artery without angina pectoris; I48.20 Chronic atrial fibrillation, unspecified; I10 Essential (primary) hypertension; I71.4 Abdominal aortic aneurysm, without rupture; G47.30 Sleep apnea, unspecified; G89.4 Chronic pain syndrome; R60.0 Localized edema; J44.9 Chronic obstructive pulmonary disease, unspecified; F41.0 Panic disorder [episodic paroxysmal anxiety]; F41.9 Anxiety disorder, unspecified; F33.8 Other recurrent depressive disorders; Z79.01 Long term (current) use of anticoagulants; Z95.828 Presence of other vascular implants and grafts; Z95.1 Presence of aortocoronary bypass graft; Z87.891 Personal history of nicotine dependence; Z95.820 Peripheral vascular angioplasty status with implants and grafts; Z95.818 Presence of other cardiac implants and grafts; Z79.4 Long term (current) use of insulin ==

== ENCOUNTER → 2019-11-12 | Outpatient (CLI) | payer OTHER | LOC: SJCVC 14:26 | DX: I45.10 Unspecified right bundle-branch block (principal); I48.20 Chronic atrial fibrillation, unspecified; R94.31 Abnormal electrocardiogram [ECG] [EKG]; I25.810 Atherosclerosis of coronary artery bypass graft(s) without angina pectoris; I73.9 Peripheral vascular disease, unspecified; E78.00 Pure hypercholesterolemia, unspecified; E11.9 Type 2 diabetes mellitus without complications; I10 Essential (primary) hypertension; J44.9 Chronic obstructive pulmonary disease, unspecified; Z79.4 Long term (current) use of insulin; Z95.1 Presence of aortocoronary bypass graft; Z79.82 Long term (current) use of aspirin; Z79.899 Other long term (current) drug therapy; Z87.891 Personal history of nicotine dependence ==

== ENCOUNTER → 2020-06-15 | Outpatient (CLI) | payer OTHER | LOC: SJCVCIMAG 05-18 08:00 | PROVIDERS: ATTEND Internal Medicine Cardiovascular Disease | DX: I08.3 Combined rheumatic disorders of mitral, aortic and tricuspid valves (principal); I70.203 Unspecified atherosclerosis of native arteries of extremities, bilateral legs; I48.91 Unspecified atrial fibrillation; I45.10 Unspecified right bundle-branch block; I49.3 Ventricular premature depolarization; I25.810 Atherosclerosis of coronary artery bypass graft(s) without angina pectoris; E78.00 Pure hypercholesterolemia, unspecified; E11.9 Type 2 diabetes mellitus without complications; I65.23 Occlusion and stenosis of bilateral carotid arteries; I71.4 Abdominal aortic aneurysm, without rupture; Z95.1 Presence of aortocoronary bypass graft; Z98.890 Other specified postprocedural states; Z79.899 Other long term (current) drug therapy; Z85.828 Personal history of other malignant neoplasm of skin; Z87.891 Personal history of nicotine dependence ==

== ENCOUNTER → 2020-11-15 | Outpatient (CLI) | payer OTHER | LOC: HYPER 08:26 | PROVIDERS: ATTEND Emergency Medicine | DX: S80.822D Blister (nonthermal), left lower leg, subsequent encounter (principal); E11.622 Type 2 diabetes mellitus with other skin ulcer; L97.821 Non-pressure chronic ulcer of other part of left lower leg limited to breakdown of skin; L97.811 Non-pressure chronic ulcer of other part of right lower leg limited to breakdown of skin; L03.116 Cellulitis of left lower limb; L03.115 Cellulitis of right lower limb; E11.51 Type 2 diabetes mellitus with diabetic peripheral angiopathy without gangrene; I25.10 Atherosclerotic heart disease of native coronary artery without angina pectoris; I48.20 Chronic atrial fibrillation, unspecified; I10 Essential (primary) hypertension; I71.4 Abdominal aortic aneurysm, without rupture; R60.0 Localized edema; L30.9 Dermatitis, unspecified; G89.4 Chronic pain syndrome; J44.9 Chronic obstructive pulmonary disease, unspecified; G47.50 Parasomnia, unspecified; G40.802 Other epilepsy, not intractable, without status epilepticus; E78.00 Pure hypercholesterolemia, unspecified; G47.30 Sleep apnea, unspecified; F41.0 Panic disorder [episodic paroxysmal anxiety]; F33.8 Other recurrent depressive disorders; F41.9 Anxiety disorder, unspecified; Z87.891 Personal history of nicotine dependence; Z79.4 Long term (current) use of insulin; Z79.01 Long term (current) use of anticoagulants; Z79.82 Long term (current) use of aspirin; Z79.899 Other long term (current) drug therapy; Z98.890 Other specified postprocedural states; Z95.828 Presence of other vascular implants and grafts; Z95.1 Presence of aortocoronary bypass graft; X58.XXXD Exposure to other specified factors, subsequent encounter ==

== ENCOUNTER → 2020-11-22 | Outpatient (CLI) | payer OTHER | LOC: HYPER 11:20 | PROVIDERS: ATTEND Emergency Medicine | DX: S80.822D Blister (nonthermal), left lower leg, subsequent encounter (principal); E11.622 Type 2 diabetes mellitus with other skin ulcer; L97.821 Non-pressure chronic ulcer of other part of left lower leg limited to breakdown of skin; L97.811 Non-pressure chronic ulcer of other part of right lower leg limited to breakdown of skin; L03.116 Cellulitis of left lower limb; L03.115 Cellulitis of right lower limb; E11.51 Type 2 diabetes mellitus with diabetic peripheral angiopathy without gangrene; I25.10 Atherosclerotic heart disease of native coronary artery without angina pectoris; I48.20 Chronic atrial fibrillation, unspecified; I10 Essential (primary) hypertension; I71.4 Abdominal aortic aneurysm, without rupture; R60.0 Localized edema; L30.9 Dermatitis, unspecified; G89.4 Chronic pain syndrome; J44.9 Chronic obstructive pulmonary disease, unspecified; G47.50 Parasomnia, unspecified; G40.802 Other epilepsy, not intractable, without status epilepticus; E78.00 Pure hypercholesterolemia, unspecified; G47.30 Sleep apnea, unspecified; F41.0 Panic disorder [episodic paroxysmal anxiety]; F33.8 Other recurrent depressive disorders; F41.9 Anxiety disorder, unspecified; Z87.891 Personal history of nicotine dependence; Z79.4 Long term (current) use of insulin; Z79.01 Long term (current) use of anticoagulants; Z79.82 Long term (current) use of aspirin; Z79.899 Other long term (current) drug therapy; Z98.890 Other specified postprocedural states; Z95.818 Presence of other cardiac implants and grafts; Z95.828 Presence of other vascular implants and grafts; Z95.1 Presence of aortocoronary bypass graft; X58.XXXD Exposure to other specified factors, subsequent encounter ==

== ENCOUNTER → 2021-03-23 | Outpatient (CLI) | payer OTHER | LOC: SJCVCIMAG 14:06 | PROVIDERS: ATTEND Internal Medicine Cardiovascular Disease | DX: I05.9 Rheumatic mitral valve disease, unspecified (principal); I25.810 Atherosclerosis of coronary artery bypass graft(s) without angina pectoris; I10 Essential (primary) hypertension; E11.51 Type 2 diabetes mellitus with diabetic peripheral angiopathy without gangrene; G47.30 Sleep apnea, unspecified; J44.9 Chronic obstructive pulmonary disease, unspecified; I48.0 Paroxysmal atrial fibrillation; N17.9 Acute kidney failure, unspecified; E78.00 Pure hypercholesterolemia, unspecified; I65.23 Occlusion and stenosis of bilateral carotid arteries; D68.59 Other primary thrombophilia; I71.4 Abdominal aortic aneurysm, without rupture; I48.20 Chronic atrial fibrillation, unspecified; Z95.828 Presence of other vascular implants and grafts; Z95.1 Presence of aortocoronary bypass graft; Z79.899 Other long term (current) drug therapy; Z79.82 Long term (current) use of aspirin ==

== ENCOUNTER → 2021-04-13 | Outpatient (CLI) | payer OTHER | LOC: SJCVC 13:25 | PROVIDERS: ATTEND Internal Medicine Cardiovascular Disease | DX: I25.10 Atherosclerotic heart disease of native coronary artery without angina pectoris (principal); G47.30 Sleep apnea, unspecified; I73.9 Peripheral vascular disease, unspecified; I48.20 Chronic atrial fibrillation, unspecified; N17.9 Acute kidney failure, unspecified; I65.23 Occlusion and stenosis of bilateral carotid arteries; I71.4 Abdominal aortic aneurysm, without rupture; I10 Essential (primary) hypertension; J44.9 Chronic obstructive pulmonary disease, unspecified; E11.51 Type 2 diabetes mellitus with diabetic peripheral angiopathy without gangrene; Z95.1 Presence of aortocoronary bypass graft; Z98.61 Coronary angioplasty status; Z95.0 Presence of cardiac pacemaker; Z98.890 Other specified postprocedural states; Z90.49 Acquired absence of other specified parts of digestive tract; Z88.8 Allergy status to other drugs, medicaments and biological substances; Z79.82 Long term (current) use of aspirin; Z79.4 Long term (current) use of insulin; Z79.899 Other long term (current) drug therapy; Z87.891 Personal history of nicotine dependence; Z82.49 Family history of ischemic heart disease and other diseases of the circulatory system ==

== ENCOUNTER → 2021-04-27 | Outpatient (CLI) | payer OTHER | LOC: SJCVC 16:03 | PROVIDERS: ATTEND Internal Medicine Cardiovascular Disease | DX: I47.2 Ventricular tachycardia (principal); I25.10 Atherosclerotic heart disease of native coronary artery without angina pectoris; E78.5 Hyperlipidemia, unspecified; I10 Essential (primary) hypertension; I73.9 Peripheral vascular disease, unspecified; E11.51 Type 2 diabetes mellitus with diabetic peripheral angiopathy without gangrene; Z95.1 Presence of aortocoronary bypass graft; Z95.810 Presence of automatic (implantable) cardiac defibrillator; Z88.8 Allergy status to other drugs, medicaments and biological substances; Z79.82 Long term (current) use of aspirin; Z79.4 Long term (current) use of insulin; Z79.899 Other long term (current) drug therapy; Z87.891 Personal history of nicotine dependence; Z82.49 Family history of ischemic heart disease and other diseases of the circulatory system ==

== ENCOUNTER → 2021-05-26 | Outpatient (CLI) | payer OTHER | LOC: SJCVC 08:28 | PROVIDERS: ATTEND Internal Medicine Cardiovascular Disease | DX: E11.9 Type 2 diabetes mellitus without complications (principal); J44.9 Chronic obstructive pulmonary disease, unspecified; G47.30 Sleep apnea, unspecified ==

== ENCOUNTER → 2021-06-05 | Outpatient (CLI) | payer OTHER | LOC: SJCVC 11:12 | PROVIDERS: ATTEND Internal Medicine Cardiovascular Disease | DX: E11.9 Type 2 diabetes mellitus without complications (principal); J44.9 Chronic obstructive pulmonary disease, unspecified; G47.30 Sleep apnea, unspecified; I10 Essential (primary) hypertension; I73.9 Peripheral vascular disease, unspecified; E78.00 Pure hypercholesterolemia, unspecified; Z95.1 Presence of aortocoronary bypass graft ==

== ENCOUNTER → 2021-06-16 | Outpatient (CLI) | payer OTHER ==
[~2021-06-16] MED LIST changes: +ABILIFY 5 MG TAB5 M1 PO; +ASA81BEC PO; +MIRTAZAPINE15 M2 PO; +NOVOLOG100 UNIT/M SUBQ; +OXAYDO5 MG PO; +PRAVACHOL40 MG PO; +TORSEMIDE5 MG PO; +TRELEGY ELLIPT1 EACH INH; +ZESTRIL5 MG PO
== END ==
LOC: LAB 13:22
PROVIDERS: ATTEND Student in an Organized Health Care Education/Training Program
DX: Z01.812 Encounter for preprocedural laboratory examination (principal); Z20.822 Contact with and (suspected) exposure to COVID-19

== ENCOUNTER → 2021-06-20 | Outpatient (CLI) | payer OTHER ==
[~2021-06-20] VITALS: Ht 180.3 cm; Wt 99.8 kg
--- NOTE | 2021-06-23 10:25 | PATH ---
[facility] [address] [place] [address] PATHOLOGY RPT PROCEDURE Name: FLORECITA CASSIDY Room #: REG BA Tapia.#: [id number] Admission: 06/20/21 Date of : 44 Discharge: Report #: [id number] Path Case #: [id number] [facility] Accession Number: [id number] . 01 Material submitted: . PART A: gastrointestinal site - GASTRIC BX PART B: colon - TRANSVERSE COLON POLYP. Modifiers: transverse . 01 Clinical history: . R/O H. PYLORI IRON DEFICIENCY ANEMIA GASTRITIS, COLON POLYP, DIVERTICULOSIS . 02 Diagnosis: A. Gastric mucosa, gastric, biopsy: - Focal mild active chronic gastritis. - H. pylori immunostain is negative. . B. Colonic mucosa, transverse colon polyp, biopsy: - Tubular adenoma. . (SCA:tevin; 06/22/2021) QLM 06/22/2021 1539 Local . 02 Electronically signed: . Roderick Beckett DO, Pathologist NPI- [id number] . 01 Gross description: . A. The specimen is received in formalin, labeled "Florecita Cassidy, gastric biopsy". Received are five segments of pale mcnair tissue ranging in size from 0.2-0.5 cm in maximum dimensions. The specimen is submitted entirely in cassette A1. . B. The specimen is received in formalin, labeled "Florecita Cassidy, transverse colon polyp". Received is a segment of pale mcnair tissue measuring 0.3 cm in maximum dimensions. The specimen is submitted entirely in cassette B1. (CAA; 06/21/2021) QAC/QAC 06/22/2021 1239 Local . 02 Pathologist provided ICD-10: K29.50, D12.3 . 02 CPT . 360803, 149600, N46041 Specimen Comment: A courtesy copy of this report has been sent to [phone] [address] PATHOLOGY RPT PROCEDURE Name: FLORECITA CASSIDY Room #: REG [facility]#: [id number] Admission: 06/20/21 Date of : 44 Discharge: Report #: [id number] Path Case #: [id number] Specimen Comment: [id number] Specimen Comment: Report sent to / DR BISHOP Specimen Comment: A duplicate report has been generated due to demographic updates. Performed at: 01 [facility] [address] [id number] MD Jd Wharton MD Phone: [phone] Performed at: 02 [facility] [address] [id number] MD Sonny Mercado MD Phone: [phone]
== END | disposition home or self-care (01) ==
LOC: GI 08:34
PROVIDERS: ATTEND Internal Medicine
DX: Z12.11 Encounter for screening for malignant neoplasm of colon (principal); D12.3 Benign neoplasm of transverse colon; K57.30 Diverticulosis of large intestine without perforation or abscess without bleeding; K64.8 Other hemorrhoids; D50.9 Iron deficiency anemia, unspecified; K29.50 Unspecified chronic gastritis without bleeding; I10 Essential (primary) hypertension; E11.9 Type 2 diabetes mellitus without complications; E78.00 Pure hypercholesterolemia, unspecified; F41.9 Anxiety disorder, unspecified; J43.9 Emphysema, unspecified; I25.2 Old myocardial infarction; Z86.010 Personal history of colon polyps; Z98.890 Other specified postprocedural states; Z79.899 Other long term (current) drug therapy; Z87.891 Personal history of nicotine dependence
CPT/HCPCS: 62110; 62900

== ENCOUNTER → 2021-08-17 | Outpatient (CLI) | payer OTHER | LOC: SJCVC 13:51 | PROVIDERS: ATTEND Internal Medicine Cardiovascular Disease | DX: R94.31 Abnormal electrocardiogram [ECG] [EKG] (principal); I44.7 Left bundle-branch block, unspecified; I47.2 Ventricular tachycardia; E11.9 Type 2 diabetes mellitus without complications; E78.5 Hyperlipidemia, unspecified; I25.10 Atherosclerotic heart disease of native coronary artery without angina pectoris; F41.9 Anxiety disorder, unspecified; F32.9 Major depressive disorder, single episode, unspecified; J44.9 Chronic obstructive pulmonary disease, unspecified; E78.00 Pure hypercholesterolemia, unspecified; I71.4 Abdominal aortic aneurysm, without rupture; I48.20 Chronic atrial fibrillation, unspecified; I10 Essential (primary) hypertension; I73.9 Peripheral vascular disease, unspecified; G47.30 Sleep apnea, unspecified; Z95.818 Presence of other cardiac implants and grafts; Z87.891 Personal history of nicotine dependence; Z78.9 Other specified health status; Z95.1 Presence of aortocoronary bypass graft; Z79.4 Long term (current) use of insulin; Z79.82 Long term (current) use of aspirin; Z79.899 Other long term (current) drug therapy; Z82.49 Family history of ischemic heart disease and other diseases of the circulatory system; Z88.1 Allergy status to other antibiotic agents; Z88.8 Allergy status to other drugs, medicaments and biological substances ==

== ENCOUNTER → 2021-10-10 | Outpatient (CLI) | payer OTHER | END | disposition home or self-care (01) | LOC: SJCVCIMAG 09:29 | PROVIDERS: ATTEND Internal Medicine Infectious Disease | DX: I08.3 Combined rheumatic disorders of mitral, aortic and tricuspid valves (principal); N28.1 Cyst of kidney, acquired; I47.2 Ventricular tachycardia; I25.10 Atherosclerotic heart disease of native coronary artery without angina pectoris; I25.5 Ischemic cardiomyopathy; I71.4 Abdominal aortic aneurysm, without rupture; I48.20 Chronic atrial fibrillation, unspecified; E11.22 Type 2 diabetes mellitus with diabetic chronic kidney disease; I12.9 Hypertensive chronic kidney disease with stage 1 through stage 4 chronic kidney disease, or unspecified chronic kidney disease; N18.9 Chronic kidney disease, unspecified; J44.9 Chronic obstructive pulmonary disease, unspecified; I73.9 Peripheral vascular disease, unspecified; E78.00 Pure hypercholesterolemia, unspecified; G47.30 Sleep apnea, unspecified; Z95.1 Presence of aortocoronary bypass graft; Z95.810 Presence of automatic (implantable) cardiac defibrillator; Z87.891 Personal history of nicotine dependence; Z79.82 Long term (current) use of aspirin; Z79.899 Other long term (current) drug therapy; Z82.49 Family history of ischemic heart disease and other diseases of the circulatory system; Z88.8 Allergy status to other drugs, medicaments and biological substances ==